=== PATIENT | female | born 1990 | race American Indian/Alaskan Native ===

== ENCOUNTER 2022-01-18 17:32 | Emergency (ER) | payer MEDICAID ==
[2022-01-18 18:27] VITALS: BP 132/77
[2022-01-18] MEDS ORDERED: KETOROLAC 30 MG/1 ML INJ IM ONE (19:21)
[2022-01-18] MEDS ORDERED: HYDROcodone/ACETAMINOPHEN 5-325 MG TAB PO ONE (19:23)
[2022-01-18] MEDS ORDERED: predniSONE 20 MG TAB PO ONE (19:23)
--- NOTE | 2022-01-18 19:31 | Emergency Department Report ---
ED Upper Extremity Inj HPI - General Chief Complaint: Extremity Injury, Upper Stated Complaint: LEFT WRIST Time Seen by Provider: 01/18/22 18:38 Source: patient Mode of arrival: Ambulatory Limitations: No Limitations - History of Present Illness Initial Comments: 31-year-old female with no prior history of presents to the emergency department with atraumatic left wrist pain. Patient describes sharp pain in her left wrist and radiates to her left forearm, states started about 2 days ago and has progressively gotten worse, difficulty moving difficulty bending gripping or flexing or extending her arm. She denies injury, she denies history of neuropathy, carpal tunnel syndrome, she denies any previous fractures or orthopedic repair, no numbness tingling or paresthesia of the extremity. She is left-handed. Last menstrual period was about 12/29/2021 -: Sudden, days(s) Other Extremity Injury: Wrist: Left, Forearm: Left Other Injuries: none Handedness: left Place: work Severity scale (0 -10): 10 Improves With: immobilization Worsens With: movement of extremity Associated Symptoms: denies: weakness, numbness, nausea/vomiting, heard/felt popping sensat - Related Data Previous Rx's Medication Instructions Recorded Last Taken Type Cyclobenzaprine [Flexeril] 10 mg PO TID PRN #21 01/18/22 Unknown Rx Naproxen [Naprosyn] 375 mg PO BID PRN #20 tablet 01/18/22 Unknown Rx Allergies Allergy/AdvReac Type Severity Reaction Status Date / Time No Known Allergies Allergy Unverified 01/18/22 18:19 ED Review of Systems ROS: Stated complaint: LEFT WRIST Other details as noted in HPI Constitutional: no symptoms reported ENT: as per HPI Respiratory: denies: cough, orthopnea, shortness of breath, SOB with exertion, wheezing Cardiovascular: denies: chest pain, palpitations, dyspnea on exertion, edema, syncope Endocrine: denies: excessive sweating, intolerance to cold, intolerance to heat Gastrointestinal: denies: abdominal pain, nausea, vomiting Genitourinary: denies: urgency, dysuria Musculoskeletal: arthralgia, myalgia. denies: back pain, joint swelling Skin: denies: rash, change in color, change in hair/nails, pruritus Neurological: headache. denies: weakness, numbness, paresthesias Psychiatric: denies: anxiety ED Past Medical Hx - Past Medical History Previous Medical History?: No - Surgical History Past Surgical History?: Yes Hx Cholecystectomy: Yes - Medications Home Medications: Home Medications Medication Instructions Recorded Confirmed Last Taken Type Cyclobenzaprine [Flexeril] 10 mg PO TID PRN #21 01/18/22 Unknown Rx Naproxen [Naprosyn] 375 mg PO BID PRN #20 tablet 01/18/22 Unknown Rx ED Physical Exam - General Limitations: No Limitations, Other (Uncomfortable appearing female) General appearance: alert, in no apparent distress - Head Head exam: Absent: atraumatic - Eye Eye exam: Present: normal appearance. Absent: PERRL - ENT ENT exam: Present: normal exam, normal orophraynx, mucous membranes moist - Neck Neck exam: Present: normal inspection. Absent: tenderness - Respiratory Respiratory exam: Present: normal lung sounds bilaterally - Cardiovascular Cardiovascular Exam: Present: regular rate, normal rhythm - GI/Abdominal GI/Abdominal exam: Present: soft. Absent: distended, tenderness - Extremities Exam Extremities exam: Present: normal inspection, normal capillary refill, other (Patient elicits tenderness of the left radial and ulnar distal, left forearm. 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 No swelling or deformity, no cuts bruises lacerations or ecchymosis full). Absent: full ROM, tenderness, joint swelling - Back Exam Back exam: Present: normal inspection. Absent: full ROM - Neurological Exam Neurological exam: Present: alert, oriented X3, CN II-XII intact, normal gait. Absent: abnormal gait - Psychiatric Psychiatric exam: Present: normal affect ED Course Vital Signs 01/18/22 18:21 Temperature 98.2 F Pulse Rate 67 Respiratory 20 Rate Blood Pressure 132/77 [Right] O2 Sat by Pulse 100 Oximetry ED Medical Decision Making - Medical Decision Making 31-year-old female no prior history also left-handed presenting with atraumatic left wrist left forearm pain. Worse with movement difficulty performing her ADLs due to pain. No paresthesias of the extremity, differential diagnosis includes carpal tunnel versus tendinitis / overuse syndrome. Profile patient is left-handed will discharge home with some supportive therapy including RICE, NSAIDs, orthopedic referral, activity modification with understanding. I discussed all of this with patient at time of discharge ambulates steadily out of the emergency department without assistance. Critical care attestation.: If time is entered above; I have spent that time in minutes in the direct care of this critically ill patient, excluding procedure time. ED Disposition Clinical Impression: Left arm pain, Tendinitis of left forearm Disposition: HOME / SELF CARE / HOMELESS Is pt being admited?: No Does the pt Need Aspirin: No Condition: Stable Instructions: How to Use Cold Therapy, [id number], Flexor Carpi Ulnaris and Flexor Carpi Radialis Tendinitis Rehab-SportsMed Prescriptions: Cyclobenzaprine [Flexeril] 10 mg PO TID PRN #21 PRN Reason: Muscle Spasm Naproxen [Naprosyn] 375 mg PO BID PRN #20 tablet PRN Reason: Pain , Severe (7-10) Referrals: ULYSSES PURVIS MD [Staff Physician] - 3-5 Days Forms: Work/School Release Form(ED)
== END 2022-01-18 19:55 | disposition home or self-care (01) ==
LOC: ED 17:32
DX: M79.602 Pain in left arm (principal); M65.232 Calcific tendinitis, left forearm; Z90.49 Acquired absence of other specified parts of digestive tract
CPT/HCPCS: 96372; 99282; J1885